=== PATIENT | male | born 1980 | race Caucasian/White ===

== ENCOUNTER 2020-02-18 13:08 | Emergency (ER) | payer MEDICAID, OTHER ==
[2020-02-18] MEDS ORDERED: Bacitracin Oint 1 GM U/D Packet TOP ONE (15:01)
--- NOTE | 2020-02-18 15:05 | EDM.PDOC ---
ED HPI GENERAL MEDICAL PROBLEM - General Chief Complaint: Laceration Stated Complaint: CUT FINGER ON LEFT HAND Time Seen by Provider: 02/18/20 14:30 Source of Information: Reports: Patient History Limitations: Reports: No Limitations - History of Present Illness INITIAL COMMENTS - FREE TEXT/NARRATIVE: This is a 39-year-old male who presents with a laceration to his right second finger. 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 He sustained a laceration from this. He has distal sensation full range of motion of the finger. His tetanus is up-to-date. Left Finger-Middle Pain Score (Numeric/FACES): 2 - Related Data Allergies Allergy/AdvReac Type Severity Reaction Status Date / Time No Known Allergies Allergy Verified 02/18/20 13:45 Home Meds: Home Meds NK [No Known Home Meds] 02/18/20 [History] Past Medical History - Past Health History Medical/Surgical History: Denies Medical/Surgical History Social & Family History - Tobacco Use Smoking Status *Q: Current Every Day Smoker Years of Tobacco use: 10 Packs/Tins Daily: 0.5 - Caffeine Use Caffeine Use: Reports: Soda - Recreational Drug Use Recreational Drug Use: No ED ROS GENERAL - Review of Systems Review Of Systems: See Below Constitutional: Reports: No Symptoms HEENT: Reports: No Symptoms Respiratory: Reports: No Symptoms Cardiovascular: Reports: No Symptoms Endocrine: Reports: No Symptoms GI/Abdominal: Reports: No Symptoms : Reports: No Symptoms Musculoskeletal: Reports: No Symptoms Skin: Reports: Wound Neurological: Reports: No Symptoms Psychiatric: Reports: No Symptoms Hematologic/Lymphatic: Reports: No Symptoms Immunologic: Reports: No Symptoms ED EXAM, SKIN/RASH Exam: See Below Exam Limited By: No Limitations General Appearance: Alert, No Apparent Distress Ears: Normal External Exam Nose: Normal Inspection Throat/Mouth: Normal Inspection Head: Atraumatic, Normocephalic Neck: Normal Inspection Respiratory/Chest: No Respiratory Distress Cardiovascular: Regular Rate, Rhythm GI/Abdominal: No Distention Back Exam: Normal Inspection Extremities: Other (Approximately 1.5 cm laceration over the proximal MCP joint) Neurological: Alert, Oriented Psychiatric: Normal Affect, Normal Mood ED SKIN PROCEDURES - Laceration/Wound Repair Right Digit - 2nd (Index) Appearance: Superficial Distal NVT: Neuro & Vascular Intact Anesthetic Type: Local Local Anesthesia - Lidocaine (Xylocaine): 1% Plain Local Anesthetic Volume: 2cc Exploration/Debridement/Repair: Wound Explored Closed with: Sutures Lac/Wound length In cm: 1.5 Suture Size: 5-0 Suture Type: Nylon Sterile Dressing Applied: Nurse Tetanus Status Addressed: Yes Complications: No Progress/Comments: Wound irrigated with tap water Course - Vital Signs Last Recorded V/S: Last Vital Signs Temp 36.7 C 02/18/20 13:45 Pulse 95 02/18/20 13:45 Resp 16 02/18/20 13:45 BP 166/101 H 02/18/20 13:45 Pulse Ox 99 02/18/20 13:45 - Re-Assessments/Exams Free Text/Narrative Re-Assessment/Exam: 39-year-old presents with a laceration to the right index finger. Repaired as above. Distal CSM intact. Tetanus status up-to-date. Discussed wound cares, timing of suture removal, returning for signs of infection. 02/18/20 15:07 Departure - Departure Time of Disposition: 15:08 Disposition: Home, Self-Care 01 Clinical Impression: Finger laceration Qualifiers: Encounter type: initial encounter Finger: index finger Damage to nail status: without damage Foreign body presence: without foreign body Laterality: right Qualified Code(s): S61.210A - Laceration without foreign body of right index finger without damage to nail, initial encounter - Discharge Information Referrals: PCP,None [Primary Care Provider] - Additional Instructions: Apply Neosporin or other ointment to the wound for the next 2 days. Keep the wound wrapped and dry for at least 2 to 3 days. Follow-up with your primary doctor in approximately 1 week for suture removal. Sepsis Event Note (ED) - Evaluation Sepsis Screening Result: No Definite Risk - Focused Exam Vital Signs: Vital Signs Temp Pulse Resp BP Pulse Ox 02/18/20 13:45 36.7 C 95 16 166/101 H 99 02/18/20 13:43 36.7 C 95 16 166/101 H 99
== END 2020-02-18 15:19 | disposition home or self-care (01) ==
LOC: JP.ED 13:08
DX: S61.210A Laceration without foreign body of right index finger without damage to nail, initial encounter (principal); F17.210 Nicotine dependence, cigarettes, uncomplicated; W26.8XXA Contact with other sharp object(s), not elsewhere classified, initial encounter; Y92.89 Other specified places as the place of occurrence of the external cause; Y99.0 Civilian activity done for income or pay
CPT/HCPCS: 12001; 99282

== ENCOUNTER 2020-05-03 14:02 | Emergency (ER) | payer OTHER ==
[2020-05-03] MEDS ORDERED: Bacitracin Oint 1 GM U/D Packet TOP ONE (15:13)
--- NOTE | 2020-05-03 15:57 | EDM.PDOC ---
<ReyesBrooky M - Last Filed: 05/03/20 15:51> ED HPI GENERAL MEDICAL PROBLEM - General Chief Complaint: Laceration Stated Complaint: CUT LEFT WRIST AREA WHILE AT WORK Time Seen by Provider: 05/03/20 15:23 Source of Information: Reports: Patient, RN, RN Notes Reviewed History Limitations: Reports: No Limitations - History of Present Illness INITIAL COMMENTS - FREE TEXT/NARRATIVE: Patient here from work due to work related injury to right forearm with a wheel grinder while working on a railing. Pt c/o pain to injury site 02/25. Does not radiate. Hurts worse when moving limb. Onset: Today Onset Date: 05/03/20 (While at work) Quality: Reports: Ache Severity: Moderate Left Arm Pain Score (Numeric/FACES): 1 - Related Data Allergies Allergy/AdvReac Type Severity Reaction Status Date / Time No Known Allergies Allergy Verified 05/03/20 15:05 Home Meds: Home Meds NK [No Known Home Meds] 02/18/20 [History] Past Medical History - Past Health History Medical/Surgical History: Denies Medical/Surgical History Social & Family History - Tobacco Use Smoking Status *Q: Current Every Day Smoker Years of Tobacco use: 20 Packs/Tins Daily: 0.5 Used Tobacco, but Quit: No Second Hand Smoke Exposure: Yes - Caffeine Use Caffeine Use: Reports: Energy Drinks, Soda - Alcohol Use Days Per Week of Alcohol Use: 2 Number of Drinks Per Day: 3 Total Drinks Per Week: 6 - Recreational Drug Use Recreational Drug Use: No ED ROS GENERAL - Review of Systems Review Of Systems: See Below Constitutional: Reports: No Symptoms HEENT: Reports: No Symptoms Respiratory: Reports: No Symptoms Cardiovascular: Reports: No Symptoms Endocrine: Reports: No Symptoms GI/Abdominal: Reports: No Symptoms : Reports: No Symptoms Musculoskeletal: Reports: Arm Pain (L FA lac ) Skin: Reports: Other (Left FA lac) Neurological: Reports: No Symptoms Psychiatric: Reports: No Symptoms Hematologic/Lymphatic: Reports: No Symptoms Immunologic: Reports: No Symptoms ED EXAM, SKIN/RASH Exam: See Below Exam Limited By: No Limitations General Appearance: Alert, WD/WN, Mild Distress Head: Normocephalic Neck: Normal Inspection Respiratory/Chest: No Respiratory Distress Cardiovascular: Regular Rate, Rhythm (Male) Exam: Deferred Rectal (Males) Exam: Deferred Neurological: Alert, Oriented, CN II-XII Intact Psychiatric: Normal Affect Skin: Other (L FA lac) Course - Vital Signs Text/Narrative:: Pt here from a work related injury with a wheel grinder while working on a railing Departure - Departure Time of Disposition: 15:56 Disposition: Home, Self-Care 01 Condition: Good Clinical Impression: Laceration - Discharge Information *PRESCRIPTION DRUG MONITORING PROGRAM REVIEWED*: Not Applicable *COPY OF PRESCRIPTION DRUG MONITORING REPORT IN PATIENT JENNY: Not Applicable Instructions: Laceration Care, Adult, [id number] Referrals: PCP,None [Primary Care Provider] - Forms: ED Department Discharge Additional Instructions: Please keep laceration clean and dry and covered for the first 24 hours. May get wet but dry the area as soon as possible. Apply Bacitracin, vaseline, or triple antibiotic ointment on laceration for the first 5-7 days to reduce scarring and aid in healing. Keep laceration covered while working to avoid contamination to area. Watch for signs of infection such as redness, discharge, warmth, swelling, or pain. Contact 911 or seek medical attention as soon as possible. You may follow up with your provider to have stiches taken out or come back to the Er and we will remove the, You may take them out yourself at home after 7 days. Sepsis Event Note (ED) - Evaluation Sepsis Screening Result: No Definite Risk - Problem List & Annotations (1) Laceration SNOMED Code(s): 334376959 Code(s): UBK9589 - Status: Acute Priority: High Current Visit: Yes - Problem List Review Problem List Initiated/Reviewed/Updated: Yes - Assessment/Plan Assessment:: Please keep laceration clean and dry and covered for the first 24 hours. May get wet but dry the area as soon as possible. Apply Bacitracin, vaseline, or triple antibiotic ointment on laceration for the first 5-7 days to reduce scarring and aid in healing. Keep laceration covered while working to avoid contamination to area. Watch for signs of infection such as redness, discharge, warmth, swelling, or pain. Contact 911 or seek medical attention as soon as possible. You may follow up with your provider to have stiches taken out or come back to the Er and we will remove the, You may take them out yourself at home after 7 days. <Officer,Tavon - Last Filed: 05/03/20 16:10> ED ROS GENERAL - Review of Systems Review Of Systems: See Below (Agree with below) ED EXAM, SKIN/RASH Text/Narrative:: Agree with below ED SKIN PROCEDURES - Laceration/Wound Repair Left Arm Appearance: Subcutaneous, Linear Distal NVT: Neuro & Vascular Intact, No Tendon Injury Anesthetic Type: Local Local Anesthesia - Lidocaine (Xylocaine): 1% Plain Local Anesthetic Volume: 4cc Skin Prep: Saline Saline Irrigation (cc's): 30 Exploration/Debridement/Repair: Wound Explored, In a Bloodless Field, Explored to Base, Wound Margins Revised Lac/Wound length In cm: 2 Suture Size: 4-0 # of Sutures: 4 Suture Type: Nylon, Interrupted Sterile Dressing Applied: Nurse Tetanus Status Addressed: Yes (2016) Complications: No Course - Vital Signs Last Recorded V/S: Last Vital Signs Temp 99.1 F 05/03/20 15:11 Pulse 69 05/03/20 15:11 Resp 69 H 05/03/20 15:11 BP 169/93 H 05/03/20 15:11 Pulse Ox 98 05/03/20 15:11 - Orders/Labs/Meds Meds: Medications Discontinued Medications Generic Name Dose Route Start Last Admin Trade Name Marilyn PRN Reason Stop Dose Admin Bacitracin 1 dose 05/03/20 15:13 05/03/20 15:18 Bacitracin Oint 1 Gm TOP 05/03/20 15:14 1 dose ONETIME ONE Administration Lidocaine HCl 5 ml 05/03/20 15:13 05/03/20 15:18 Xylocaine-Mpf 1% INJECT 05/03/20 15:14 5 ml ONETIME ONE Administration Sepsis Event Note (ED) - Focused Exam Vital Signs: Vital Signs Temp Pulse Resp BP Pulse Ox 05/03/20 15:11 99.1 F 69 69 H 169/93 H 98 05/03/20 15:02 99.1 F 69 69 H 169/93 H 98 - Assessment/Plan Plan: Assessment Acuity = acute Site and laterality = 2 cm laceration left arm Etiology = secondary to trauma with a wheel grinder Manifestations = none Location of injury = work Lab values = none Plan Suture removal in 10 days, follow wound care instruction sheet return to clinic or emergency department for suture removal This note was dictated using dragon voice recognition software please call with any questions on syntax or grammar.
== END 2020-05-03 16:22 | disposition home or self-care (01) ==
LOC: JP.ED 14:02
DX: S51.812A Laceration without foreign body of left forearm, initial encounter (principal); F17.210 Nicotine dependence, cigarettes, uncomplicated; W26.9XXA Contact with unspecified sharp object(s), initial encounter; Y92.89 Other specified places as the place of occurrence of the external cause; Y99.0 Civilian activity done for income or pay
CPT/HCPCS: 12001; 99282; J2001

== ENCOUNTER 2020-10-01 11:56 | Emergency (ER) | payer SELFPAY ==
--- NOTE | 2020-10-01 12:44 | EDM.PDOC ---
ED HPI GENERAL MEDICAL PROBLEM - General Chief Complaint: Fever Stated Complaint: COVID SYMPTOMS Time Seen by Provider: 10/01/20 12:38 Source of Information: Reports: Patient History Limitations: Reports: No Limitations - History of Present Illness INITIAL COMMENTS - FREE TEXT/NARRATIVE: Jackson is a 40-year-old male with a history of smoking who presents to the ED for evaluation of Covid-like symptoms including headache, body aches, fever, chills, drenching night sweats, nausea and vomiting, diarrhea, shortness of breath and cough. The patient symptoms started 4 days ago. He was seen in the clinic on where he underwent a COVID-19 test that was reported on Saturday to be negative. Nobody else in his family is having symptoms. Patient reports his fever has been as high as 103.4 F. He states that he is a pack per day smoker. He has had difficulty keeping fluids and solids down. His cough is been predominantly nonproductive. Headache Pain Score (Numeric/FACES): 5 - Related Data Allergies Allergy/AdvReac Type Severity Reaction Status Date / Time No Known Allergies Allergy Verified 10/01/20 12:56 Home Meds: Home Meds NK [No Known Home Meds] 02/18/20 [History] Past Medical History - Past Health History Medical/Surgical History: Denies Medical/Surgical History Social & Family History - Caffeine Use Caffeine Use: Reports: Energy Drinks, Soda ED ROS GENERAL - Review of Systems Review Of Systems: See Below Constitutional: Reports: Fever, Chills, Malaise, Fatigue, Night Sweats, Diaphoresis, Decreased Appetite HEENT: Reports: No Symptoms Respiratory: Reports: Shortness of Breath, Wheezing, Cough. Denies: Sputum Cardiovascular: Reports: No Symptoms Endocrine: Reports: Fatigue GI/Abdominal: Reports: Abdominal Pain, Diarrhea, Nausea, Vomiting : Reports: No Symptoms Musculoskeletal: Reports: Muscle Pain Skin: Reports: No Symptoms. Denies: Rash Neurological: Reports: No Symptoms Psychiatric: Reports: No Symptoms Hematologic/Lymphatic: Reports: No Symptoms Immunologic: Reports: No Symptoms ED EXAM, GENERAL - Physical Exam Exam: See Below Exam Limited By: No Limitations General Appearance: Alert, Anxious, Moderate Distress Eye Exam: Bilateral Eye: EOMI, PERRL Course - Vital Signs Last Recorded V/S: Last Vital Signs Temp 36.0 C L 10/01/20 12:54 Pulse 118 H 10/01/20 12:54 Resp 18 10/01/20 12:54 BP 145/99 H 10/01/20 12:54 Pulse Ox 98 10/01/20 12:54 - Orders/Labs/Meds Orders: Active Orders 24 hr Category Date Time Status Chest 1V Frontal [CR] Stat Exams 10/01/20 12:24 Taken Iopamidol [Isovue-370 (76%)] Med 10/01/20 13:45 Active 100 ml IV . DIRECTED Sodium Chloride 0.9% [Normal Saline] 100 ml Med 10/01/20 13:45 Active IV ASDIRECTED Sodium Chloride 0.9% [Saline Flush] Med 10/01/20 13:37 Active 10 ml FLUSH ASDIRECTED PRN Sodium Chloride 0.9% [Saline Flush] Med 10/01/20 13:38 Active 10 ml FLUSH ASDIRECTED PRN Saline Lock Insert [OM.PC] Routine Oth 10/01/20 13:38 Ordered Medication Orders Sodium Chloride (Normal Saline) 100 mls @ 3 mls/sec IV ASDIRECTED [facility] Last Admin: 10/01/20 15:25 Dose: 3 mls/sec Documented by: MYKLALY Iopamidol (Isovue-370 (76%)) 100 ml IV . DIRECTED [facility] Last Admin: 10/01/20 15:25 Dose: 100 ml Documented by: MYKLALY Sodium Chloride (Saline Flush) 10 ml FLUSH ASDIRECTED PRN PRN Reason: Keep Vein Open Last Admin: 10/01/20 15:25 Dose: 10 ml Documented by: MYKLALY Sodium Chloride (Saline Flush) 10 ml FLUSH ASDIRECTED PRN PRN Reason: Keep Vein Open Labs: Laboratory Tests 10/01/20 10/01/20 10/01/20 Range/Units 12:42 12:42 12:42 WBC 5.0 (4.5-11.0) K/uL RBC 5.26 (4.30-5.90) M/uL Hgb 18.0 H (12.0-15.0) g/dL Hct 51.2 (40.0-54.0) % MCV 97 (80-98) fL MCH 34 H (27-31) pg MCHC 35 (32-36) % Plt Count 67 L (150-400) K/uL Neut % (Auto) 72 H (36-66) % Lymph % (Auto) 16 L (24-44) % Benson % (Auto) 11 H (2-6) % Eos % (Auto) 0 L (2-4) % Baso % (Auto) 1 (0-1) % D-Dimer, Quantitative 5360.57 H (0.0-500.0) ng/mL Sodium 135 L (140-148) mmol/L Potassium 3.6 (3.6-5.2) mmol/L Chloride 98 L (100-108) mmol/L Carbon Dioxide 28 (21-32) mmol/L Anion Gap 9.1 (5.0-14.0) mmol/L BUN 7 (7-18) mg/dL Creatinine 1.0 (0.8-1.3) mg/dL Est Cr Clr Drug Dosing 92.61 mL/min Estimated GFR (MDRD) > 60 (>60) Glucose 108 H (74-106) mg/dL Calcium 8.7 (8.5-10.1) mg/dL Ferritin 1787 H (8-388) ng/ml Total Bilirubin 1.6 H (0.2-1.0) mg/dL AST 99 H (15-37) U/L ALT 63 (12-78) U/L Alkaline Phosphatase 104 (46-116) U/L C-Reactive Protein 6.57 H (0.0-0.3) mg/dL Total Protein 6.9 (6.4-8.2) g/dL Albumin 3.3 L (3.4-5.0) g/dL Globulin 3.6 H (2.3-3.5) g/dL Albumin/Globulin Ratio 0.9 L (1.2-2.2) Procalcitonin ng/mL 10/01/20 Range/Units 12:42 WBC (4.5-11.0) K/uL RBC (4.30-5.90) M/uL Hgb (12.0-15.0) g/dL Hct (40.0-54.0) % MCV (80-98) fL MCH (27-31) pg MCHC (32-36) % Plt Count (150-400) K/uL Neut % (Auto) (36-66) % Lymph % (Auto) (24-44) % Benson % (Auto) (2-6) % Eos % (Auto) (2-4) % Baso % (Auto) (0-1) % D-Dimer, Quantitative (0.0-500.0) ng/mL Sodium (140-148) mmol/L Potassium (3.6-5.2) mmol/L Chloride (100-108) mmol/L Carbon Dioxide (21-32) mmol/L Anion Gap (5.0-14.0) mmol/L BUN (7-18) mg/dL Creatinine (0.8-1.3) mg/dL Est Cr Clr Drug Dosing mL/min Estimated GFR (MDRD) (>60) Glucose (74-106) mg/dL Calcium (8.5-10.1) mg/dL Ferritin (8-388) ng/ml Total Bilirubin (0.2-1.0) mg/dL AST (15-37) U/L ALT (12-78) U/L Alkaline Phosphatase (46-116) U/L C-Reactive Protein (0.0-0.3) mg/dL Total Protein (6.4-8.2) g/dL Albumin (3.4-5.0) g/dL Globulin (2.3-3.5) g/dL Albumin/Globulin Ratio (1.2-2.2) Procalcitonin 0.34 ng/mL Meds: Medications Generic Name Dose Route Start Last Admin Trade Name Freq PRN Reason Stop Dose Admin Sodium Chloride 100 mls @ 3 mls/sec 10/01/20 13:45 10/01/20 15:25 Normal Saline IV 3 mls/sec ASDIRECTED ENDER Administration Iopamidol 100 ml 10/01/20 13:45 10/01/20 15:25 Isovue-370 (76%) IV 100 ml . DIRECTED ENDER Administration Sodium Chloride 10 ml 10/01/20 13:37 10/01/20 15:25 Saline Flush FLUSH 10 ml ASDIRECTED PRN Administration Keep Vein Open Sodium Chloride 10 ml 10/01/20 13:38 Saline Flush FLUSH ASDIRECTED PRN Keep Vein Open Discontinued Medications Generic Name Dose Route Start Last Admin Trade Name Freq PRN Reason Stop Dose Admin Acetaminophen 650 mg 10/01/20 15:21 10/01/20 15:36 Tylenol PO 10/01/20 15:22 650 mg NOW ONE Administration - Re-Assessments/Exams Free Text/Narrative Re-Assessment/Exam: 10/01/20 16:54 I reviewed the patient's labs including a markedly elevated D- dimer and C-reactive protein. These were worrisome for COVID-19 versus pulmonary emboli so we proceeded with a CT of the chest PE protocol. This demonstrated no evidence for pulmonary emboli but there was evidence for indeterminate groundglass opacities in the left upper lung in the apical posterior segment appearing to be infectious in nature but not consistent with COVID-19. The patient is noted to have multiple calcified granuloma in the left lower lobe and in the right lower lobe probably resulting from a previous histoplasmosis or blastomycosis infection. The CT also showed diffuse hepatic steatosis. With the negative COVID-19 test performed in the clinic yesterday and no evidence for the typical findings on the CT of the chest today, the patient likely has a bronchopneumonia. We will put him on azithromycin Z-Joe to treat this. Indications to return to the ED were discussed and patient is discharged in satisfactory condition. Departure - Departure Time of Disposition: 16:51 Disposition: Home, Self-Care 01 Condition: Fair Clinical Impression: Acute bronchopneumonia - Discharge Information *PRESCRIPTION DRUG MONITORING PROGRAM REVIEWED*: Not Applicable *COPY OF PRESCRIPTION DRUG MONITORING REPORT IN PATIENT JENNY: Not Applicable Instructions: Community-Acquired Pneumonia, Adult Referrals: PCP,None [Primary Care Provider] - Forms: ED Department Discharge Care Plan Goals: Your work-up today is negative for COVID-19 but does show that you have an acute pneumonia involving not only the airspaces but your lung known as bronchopneumonia. We will start you on azithromycin to treat this. This medication is taken with 2 tablets today and then 1 tablet a day for the next 4 days. Medication last 10 days because it is a very long-acting antibiotic. You should continue to take Tylenol or ibuprofen for pain control and fever. Make sure you drink plenty of fluids and rest. I anticipate that this will take 7 to 10 days to fully clear. Sepsis Event Note (ED) - Focused Exam Vital Signs: Vital Signs Temp Pulse Resp BP Pulse Ox 10/01/20 12:54 36.0 C L 118 H 18 145/99 H 98 10/01/20 12:17 36.0 C L 118 H 18 145/99 H 98 - Problem List & Annotations (1) Acute bronchopneumonia SNOMED Code(s): 977257206 Code(s): J18.0 - BRONCHOPNEUMONIA, UNSPECIFIED ORGANISM Status: Acute Priority: High Current Visit: Yes - Problem List Review Problem List Initiated/Reviewed/Updated: Yes - My Orders Last 24 Hours: My Active Orders 10/01/20 12:24 Chest 1V Frontal [CR] Stat 10/01/20 13:37 Sodium Chloride 0.9% [Saline Flush] 10 ml FLUSH ASDIRECTED PRN 10/01/20 13:38 Sodium Chloride 0.9% [Saline Flush] 10 ml FLUSH ASDIRECTED PRN Saline Lock Insert [OM.PC] Routine 10/01/20 13:45 Iopamidol [Isovue-370 (76%)] 100 ml IV . DIRECTED Sodium Chloride 0.9% [Normal Saline] 100 ml IV ASDIRECTED - Assessment/Plan Last 24 Hours: My Active Orders 10/01/20 12:24 Chest 1V Frontal [CR] Stat 10/01/20 13:37 Sodium Chloride 0.9% [Saline Flush] 10 ml FLUSH ASDIRECTED PRN 10/01/20 13:38 Sodium Chloride 0.9% [Saline Flush] 10 ml FLUSH ASDIRECTED PRN Saline Lock Insert [OM.PC] Routine 10/01/20 13:45 Iopamidol [Isovue-370 (76%)] 100 ml IV . DIRECTED Sodium Chloride 0.9% [Normal Saline] 100 ml IV ASDIRECTED
[2020-10-01] MEDS ORDERED: Sodium Chloride 0.9% 10 ML Syringe FLUSH PRN ×2 (13:37→13:38)
[2020-10-01] MEDS ORDERED: Sodium Chloride 0.9% 100 ML IV SCH (13:45)
[2020-10-01] MEDS ORDERED: Iopamidol 755 Mg/ML 100 ML Bottle IV SCH (13:45)
[2020-10-01] MEDS ORDERED: Acetaminophen 325 MG Tab PO ONE (15:21)
--- NOTE | 2020-10-01 15:52 | CRLCT ---
INDICATION: dyspnea, high d-dimerlikely covid with a neg test Indication: Dyspnea. Elevated D-dimer. Suspected COVID-19 pneumonia. Technique: CT pulmonary angiogram. 100 cc of Isovue 370 IV. Coronal/sagittal reconstruction images. Comparison: None. Findings: No pulmonary emboli are demonstrated. There is no evidence on CTA for right heart strain. There is no pulmonary infarct. There is no pleural or pericardial effusion. No thoracic lymphadenopathy. No displaced intimal calcification. Inferior thyroid gland is symmetric. The lung windows demonstrates no endobronchial mass. There is no bronchiectasis. There is no architectural distortion. There is a subtle ground-glass opacity in the left upper lobe, apical posterior segment, which measures 7 millimeters on image 74 of series 5. There is a calcified granuloma in the left lower lobe, image 110, series 5, which measures 4 millimeters. There is no pneumothorax. 4 mm opacity in the right upper lobe, series 5, image 91. 3 mm granuloma in the right upper lobe, image 57, series 5. Evaluation of the upper abdomen demonstrates no adrenal mass. There is diffuse hepatic steatosis. There is a low-density lesion in segment IV, near the fissure for the falciform ligament. This measures 15 millimeters on image 159. There is no pancreatic mass, pancreatic duct dilation, glandular atrophy. The spleen size is normal. Celiac axis and SMA proximally are patent. The bone windows demonstrate no suspicious bone lesions. On sagittal reconstruction images, the vertebral body heights are maintained. Impression: 1. No pulmonary emboli. 2. No evidence on CTA for right heart strain. 3. Indeterminate ground-glass opacity in the left upper lobe, apical posterior segment, which may be infectious in nature. The imaging appearance is not typical for COVID-[address] pneumonia. Short-term CT follow-up in 4-6 weeks may be obtained to assess for persistence of this finding. This opacity is unlikely to be visualized on chest radiographs. Dictated by Daquan Moss MD @ 10/01/2020 3:51:23 PM Please note that all CT scans at this facility use dose modulation, iterative reconstruction, and/or weight-based dosing when appropriate to reduce radiation dose to as low as reasonably achievable. Dictated by: Daquan Moss MD @ 10/01/2020 15:51:35 (Electronically Signed)
--- NOTE | 2020-10-03 09:15 | CR ---
CHEST: Portable 10/01/2020 at 1:20 PM CLINICAL HISTORY:Dyspnea COMPARISON:None FINDINGS: Lungs are mildly hyperaerated. This may represent some air trapping The heart size, pulmonary vascularity and hilar structures are normal. No infiltrate effusion or pneumothorax is seen. IMPRESSION: No infiltrates are seen Mild hyperinflation may represent some air trapping.
== END 2020-10-01 17:11 | disposition home or self-care (01) ==
LOC: JP.ED 11:56
DX: J18.0 Bronchopneumonia, unspecified organism (principal)
CPT/HCPCS: 36415; 71045; 71045-26; 71275; 80053; 82728; 84145; 85025; 85379; 86140; 99283; 99285-25; A9270-GY; Q9967

== ENCOUNTER 2024-04-02 10:12 | Emergency (ER) | payer OTHER ==
[2024-04-02] MEDS: Bacitracin Oint 1 GM U/D Packet TOP ONE (11:52)
[2024-04-02] MEDS: Lidocaine 1% 5 ML VIAL INJECT ONE (11:52)
== END 2024-04-02 12:58 | disposition home or self-care (01) ==
LOC: JP.ED 10:12
DX: S61.210A Laceration without foreign body of right index finger without damage to nail, initial encounter (principal); F17.210 Nicotine dependence, cigarettes, uncomplicated; W26.8XXA Contact with other sharp object(s), not elsewhere classified, initial encounter; Y93.89 Activity, other specified
CPT/HCPCS: 12001; 99282